=== PATIENT | male | born 1985 ===

== ENCOUNTER 2021-10-08 01:13 | Emergency (ER) | payer SELFPAY ==
[2021-10-08 02:49] VITALS: BP 185/104
--- NOTE | 2021-10-08 04:30 | XRay Report ---
CHEST 1 VIEW 10/08/2021 3:22 AM INDICATION / CLINICAL INFORMATION: COUGH, CONGESTION. COMPARISON: None available. FINDINGS: SUPPORT DEVICES: None. HEART / MEDIASTINUM: No significant abnormality. LUNGS / PLEURA: No significant pulmonary or pleural abnormality. No pneumothorax. ADDITIONAL FINDINGS: No significant additional findings. IMPRESSION: 1. No acute findings. Signer Name: Anselmo Paris DO Signed: 10/08/2021 4:25 AM Workstation Name: [id number]
[2021-10-08 04:50] LABS: Basophils % (Auto) 0.2 % (0.0-1.8); Eosinophils # (Auto) 0.2 K/mm3 (0.0-0.4); Eosinophils % (Auto) 1.5 % (0.0-4.3); Hematocrit 34.6 % (35.5-45.6); Hemoglobin 11.3 gm/dl (11.8-15.2); Lymphocytes # (Auto) 2.4 K/mm3 (1.2-5.4); Lymphocytes % (Auto) 23.2 % (13.4-35.0); Mean Corpuscular HGB Conc 33 % (32-34); Mean Corpuscular Volume 82 fl (84-94); Monocytes # (Auto) 0.8 K/mm3 (0.0-0.8); Monocytes % (Auto) 7.8 % (0.0-7.3); Platelet Count 308 K/mm3 (140-440); Red Blood Count 4.21 M/mm3 (3.65-5.03); Red Cell Distribution Width 14.9 % (13.2-15.2)
[2021-10-08 04:56] LABS: Alanine Aminotransferase 12 units/L (7-56); Albumin 4.8 g/dL (3.9-5); BUN/Creatinine Ratio 19; Blood Urea Nitrogen 21 mg/dL (9-20); Calcium 9.5 mg/dL (8.4-10.2); Hemolysis Index 8
--- NOTE | 2021-10-08 07:45 | Emergency Department Report ---
Minor Respiratory - HPI Chief Complaint: Upper Respiratory Infection Stated Complaint: COUGH Time Seen by Provider: 10/08/21 07:39 Duration: 1 week Minor Respiratory: Yes Cough, No Rhinorrhea, No Sore Throat, No Able to Tolerate Fluids, No Ear Pain, No Sick Contacts, No Hemoptysis, No Chest Pain, No Shortness of Breath, No Fever Other History: 35-year-old -Malagasy male presents to the emergency room complaining of intermittent cough for 1 week. Patient is taking nothing for his cough. Denies any fever chills no nausea no vomiting no chest pain no shortness of breath no diarrhea no loss of taste or smell. Patient is unvaccinated for Covid. Patient denies any past medical history. ED Review of Systems ROS: Stated complaint: COUGH Other details as noted in HPI Comment: All other systems reviewed and negative ED Past Medical Hx - Past Medical History Hx Hypertension: Yes - Surgical History Past Surgical History?: No Minor Respiratory Exam - Exam General: Vital signs noted. No distress. Alert and acting appropriately. HEENT: Yes Moist Mucous Membranes, No Pharyngeal Erythema, No Pharyngeal Exudates, No Rhinorrhea, No Conjuctival Injection, No Frontal Tenderness, No Maxillary Tenderness Neck: Yes Supple, No Adenopathy Lungs: Yes Good Air Exchange, No Wheezes, No Ronchi, No Stridor, No Cough, No Labored Respirations, No Retractions, No Use of Accessory Muscles, No Other Abnormal Lung Sounds Heart: Yes Regular, No Murmur Abdomen: Yes Normal Bowel Sounds, No Tenderness, No Peritoneal Signs Skin: No Rash, No Edema Neurologic: Alert and oriented, no deficits. Musculoskeletal: Unremarkable. ED Course Vital Signs 10/08/21 02:45 Temperature 98.8 F Pulse Rate 98 H Respiratory 18 Rate Blood Pressure 185/104 O2 Sat by Pulse 99 Oximetry ED Medical Decision Making - Lab Data Result diagrams: 10/08/21 04:11 10/08/21 04:11 - Radiology Data Radiology results: report reviewed [facility] [address] [place] [address] XRay Report Signed Patient: NILE STERLING MR#: [id number] 48 : 1985 Acct:[id number] Age/Sex: 35 / M ADM Date: 10/08/21 Loc: ED Attending Dr: Ordering Physician: ED DOCMD Date of Service: 10/08/21 Procedure(s): XR chest 1V ap Accession Number(s): [id number] cc: ED DOC, Fluoro Time In Minutes: CHEST 1 VIEW 10/08/2021 3:22 AM INDICATION / CLINICAL INFORMATION: COUGH, CONGESTION. COMPARISON: None available. FINDINGS: SUPPORT DEVICES: None. HEART / MEDIASTINUM: No significant abnormality. LUNGS / PLEURA: No significant pulmonary or pleural abnormality. No pneumothorax. ADDITIONAL FINDINGS: No significant additional findings. IMPRESSION: 1. No acute findings. Signer Name: Anselmo Paris DO Signed: 10/08/2021 4:25 AM Workstation Name: [id number] Transcribed By: NADIA Dictated By: ANSELMO PARIS DO Electronically Authenticated By: ANSELMO PARIS DO Signed Date/Time: 10/08/21424 DD/ 4 TD/TT: - Medical Decision Making 35-year-old -Malagasy male presents to the emergency room complaining of intermittent cough for 1 week. Patient is taking nothing for his cough. Denies any fever chills no nausea no vomiting no chest pain no shortness of breath no diarrhea no loss of taste or smell. Patient is unvaccinated for Covid. Patient denies any past medical history. Chest x-ray is negative labs are stable Critical care attestation.: If time is entered above; I have spent that time in minutes in the direct care of this critically ill patient, excluding procedure time. ED Disposition Clinical Impression: Cough Disposition: 01 HOME / SELF CARE / HOMELESS Is pt being admited?: No Does the pt Need Aspirin: No Condition: Stable Instructions: Cough, Adult, [id number] Additional Instructions: Recommend [id number] cough medication Referrals: [facility] [Provider Group] - 3-5 Days Time of Disposition: 07:47
== END 2021-10-08 11:08 | disposition home or self-care (01) ==
LOC: ED 01:13
DX: R05.9 Cough, unspecified (principal); I10 Essential (primary) hypertension
CPT/HCPCS: 36415; 71045; 80053; 85025; 99283